=== PATIENT | female | born 1945 | race Asian ===

== ENCOUNTER 2016-12-11 12:48 | Emergency (ER) | payer MEDICARE ==
[~2016-12-11] VITALS: Ht 160 cm; Wt 45.4 kg
[2016-12-11] MEDS ORDERED: LISINOPRIL10 MG ORAL (12:58)
[2016-12-11 13:00] VITALS: BP 156/86
[2016-12-11] MEDS ORDERED: levETIRAcetam 500mg vial IV ONE (13:08)
[2016-12-11 13:09] LABS: HEMATOCRIT 38.3 % (37.0-47.0); HEMOGLOBIN 13.2 G/DL (12.0-16.0); MEAN CORPUSCULAR VOLUME 98 FL (80-99); PLATELET COUNT 280 K/UL (150-450); RED BLOOD COUNT 3.91 M/UL (4.20-5.40); WHITE BLOOD COUNT 12.6 K/UL (4.8-10.8)
[2016-12-11] MEDS ORDERED: levETIRAcetam 1,000mg/NS100ml 100 ML IVPB ONE (13:15)
[2016-12-11 13:17] LABS: INR 0.9 (0.9-1.1)
[2016-12-11] MEDS ORDERED: Etomidate 40mg/20ml Inj IV ONE (13:21)
[2016-12-11] MEDS ORDERED: Zemuron 50mg/5ml Inj IV ONE (13:21)
[2016-12-11 13:29] LABS: APPEARANCE,URINE CLEAR; BILIRUBIN, URINE NEGATIVE (NEGATIVE); COLOR,URINE PALE YELLOW; GLUCOSE, URINE (UA) 2+ (NEGATIVE); KETONES,URINE NEGATIVE (NEGATIVE); LEUKOCYTE ESTERASE ,URINE NEGATIVE (NEGATIVE); NITRITE,URINE NEGATIVE (NEGATIVE); PH,URINE 7 (4.5-8.0); PROTEIN,URINE 1+ (NEGATIVE); UROBILINOGEN,URINE NORMAL MG/DL (0.0-1.0)
[2016-12-11 13:30] VITALS: BP 178/93
--- NOTE | 2016-12-11 13:30 | Emergency Room Report ---
History of Present Illness General Chief Complaint: Altered Level of Consciousness Source: Family Member Present Illness HPI Patient is 71-year-old female presented after altered mental status. Patient had a report onset of headache approximately last night 11:30 PM. This was noted the sudden onset. Patient was given Percocet by mouth by family member. Subsequently patient was noted to have a decreased mental status in the morning. The patient prior history of hypertension only takes lisinopril for hypertension. She is not on anticoagulation. The patient was noted to be sleeping to the morning and continued to be unresponsive throughout the day. Allergies: Coded Allergies: No Known Allergies (Unverified , 12/11/16) Patient History Past Medical History: see triage record Reviewed Nursing Documentation: PMH: Agreed, PSxH: Agreed Nursing Documentation-PMH Past Medical History: No History, Except For Hx Hypertension: Yes Review of Systems All Other Systems: limited - by acuity Physical Exam Vital Signs Date Time Temp Pulse Resp B/P (MAP) Pulse Ox O2 Delivery O2 Flow Rate FiO2 12/11/16 12:51 98.2 78 20 161/91 94 Room Air General Appearance: moderate distress, thin Eyes: bilateral eye other - right eye deviation ENT: other - diminished gag reflex Neck: full range of motion Respiratory: lungs clear, normal breath sounds Cardiovascular #1: normal peripheral pulses, regular rate, rhythm, no edema Gastrointestinal: normal inspection, non tender, soft Musculoskeletal: normal inspection, back normal Neurologic: alert, oriented x3, responsive, 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 Total critical care time excluding procedures approximately 45 minutes. Intubation Intubation : Consent: Emergent Time of Intubation: 13:22 Intubation Method: orotracheal Tube Size (cm): 7.0 Medications: Etomidate, Rocuronium Breath Sounds after Intubation: equal Intubation Complications: no complications Post Intubation Xray: Yes Attempts: One Patient Tolerated: Well Complications: None Medical Decision Making Diagnostic Impression: Primary Impression: Altered level of consciousness Additional Impressions: Subarachnoid hemorrhage Hydrocephalus ER Course Patient presented for altered mental status. Differential diagnosis included but was not limited to ischemic stroke, subarachnoid hemorrhage, hypoglycemia, spinal cord injury, neurodegenerative disorder, urinary tract infection, hypoxemia. and she CT imaging ad by radiology showed subarachnoid hemorrhage in the paramesencephalic cisterns. patient was given IV etomidate and Rocuronium for intubation. Patient was given IV Keppra 1000 mg for seizure prophylaxis. The patient was discussed with Dr. Gilmore from [facility] for higher-level care transfer and he agreed to accept the patient. Patient will be started on a Nicardipine. Labs Test 12/11/16 13:00 12/11/16 13:20 White Blood Count 12.6 K/UL (4.8-10.8) Red Blood Count 3.91 M/UL (4.20-5.40) Hemoglobin 13.2 G/DL (12.0-16.0) Hematocrit 38.3 % (37.0-47.0) Mean Corpuscular Volume 98 FL (80-99) Mean Corpuscular Hemoglobin 33.8 PG (27.0-31.0) Mean Corpuscular Hemoglobin Concent 34.6 G/DL (32.0-36.0) Red Cell Distribution Width 11.0 % (11.6-14.8) Platelet Count 280 K/UL (150-450) Mean Platelet Volume 5.7 FL (6.5-10.1) Neutrophils (%) (Auto) % (45.0-75.0) Lymphocytes (%) (Auto) % (20.0-45.0) Monocytes (%) (Auto) % (1.0-10.0) Eosinophils (%) (Auto) % (0.0-3.0) Basophils (%) (Auto) % (0.0-2.0) Differential Total Cells Counted 100 Neutrophils % (Manual) 91 % (45-75) Lymphocytes % (Manual) 7 % (20-45) Monocytes % (Manual) 1 % (1-10) Eosinophils % (Manual) 0 % (0-3) Basophils % (Manual) 0 % (0-2) Band Neutrophils 1 % (0-8) Platelet Estimate Adequate Platelet Morphology Normal Red Blood Cell Morphology Normal Prothrombin Time 9.5 SEC (9.30-11.50) Prothromb Time International Ratio 0.9 (0.9-1.1) Activated Partial Thromboplast Time 25 SEC (23-33) Sodium Level 139 MMOL/L (136-145) Potassium Level 3.6 MMOL/L (3.5-5.1) Chloride Level 102 MMOL/L (98-107) Carbon Dioxide Level 21 MMOL/L (21-32) Anion Gap 16 mmol/L (5-15) Blood Urea Nitrogen 15 mg/dL (7-18) Creatinine 0.8 MG/DL (0.55-1.30) Estimat Glomerular Filtration Rate mL/min (>60) Glucose Level 160 MG/DL (74-106) Calcium Level 9.1 MG/DL (8.5-10.1) Total Bilirubin 0.9 MG/DL (0.2-1.0) Aspartate Amino Transf (AST/SGOT) 27 U/L (15-37) Alanine Aminotransferase (ALT/SGPT) 38 U/L (12-78) Alkaline Phosphatase 69 U/L (46-116) Total Protein 8.0 G/DL (6.4-8.2) Albumin 3.9 G/DL (3.4-5.0) Globulin 4.1 g/dL Albumin/Globulin Ratio 1.0 (1.0-2.7) Triglycerides Level 78 MG/DL (0-200) Cholesterol Level 258 MG/DL (< 200) LDL Cholesterol 173 mg/dL (<100) HDL Cholesterol 70 MG/DL (40-60) Cholesterol/HDL Ratio 3.7 (3.3-4.4) Thyroid Stimulating Hormone (TSH) 0.505 uiU/mL (0.360-3.740) Urine Color Pale yellow Urine Appearance Clear Urine pH 7 (4.5-8.0) Urine Specific [place] 1.010 (1.005-1.035) Urine Protein 1+ (NEGATIVE) Urine Glucose (UA) 2+ (NEGATIVE) Urine Ketones Negative (NEGATIVE) Urine Occult Blood 1+ (NEGATIVE) Urine Nitrite Negative (NEGATIVE) Urine Bilirubin Negative (NEGATIVE) Urine Urobilinogen Normal MG/DL (0.0-1.0) Urine Leukocyte Esterase Negative (NEGATIVE) EKG Diagnostic Results Rate: normal Rhythm: NSR ST Segments: no acute changes Last Vital Signs Date Time Temp Pulse Resp B/P (MAP) Pulse Ox O2 Delivery O2 Flow Rate FiO2 12/11/16 12:51 98.2 78 20 161/91 94 Room Air Status: unchanged Disposition: ER [facility] Condition: Critical Referrals: NOT CHOSEN IPA/,REFERRING (PCP) Geovanny Delcid Dec 11, 2016 13:30
[2016-12-11 13:32] LABS: ALANINE AMINOTRANSFERASE 38 U/L (12-78); ALBUMIN 3.9 G/DL (3.4-5.0); ALKALINE PHOSPHATASE 69 U/L (46-116); ANION GAP 16 mmol/L (5-15); ASPARTATE AMINO TRANSFERASE 27 U/L (15-37); BILIRUBIN,TOTAL 0.9 MG/DL (0.2-1.0); BLOOD UREA NITROGEN 15 mg/dL (7-18); CALCIUM 9.1 MG/DL (8.5-10.1); CARBON DIOXIDE 21 MMOL/L (21-32); CHLORIDE 102 MMOL/L (98-107); CREATININE 0.8 MG/DL (0.55-1.30); POTASSIUM 3.6 MMOL/L (3.5-5.1); SODIUM 139 MMOL/L (136-145)
[2016-12-11 13:39] LABS: CHOLESTEROL 258 MG/DL (< 200); HDL CHOLESTEROL 70 MG/DL (40-60); TRIGLYCERIDES 78 MG/DL (0-200)
[2016-12-11 13:45] VITALS: BP 159/76
[2016-12-11] MEDS ORDERED: niCARdipine HCl 200 ML IV SCH (13:45)
[2016-12-11 14:00] VITALS: BP 183/77
[2016-12-11 14:30] VITALS: BP 183/77
--- NOTE | 2016-12-12 11:12 | Diagnostic Imaging Report ---
Indication: Altered mental status Technique: Contiguous 5 mm thick transaxial imaging of the head obtained in a Siemens Sensation [address] scanner. Soft tissue and bone windows generated. Total Dose length Product (DLP): [address] Dose Index Volume (CTDIvol): 70.38, 0.15 mGy Comparison: none Findings: There is high density subarachnoid blood within the suprasellar cistern,. There is a mesencephalic cisterns, left sylvian fissure. There is hydrocephalus with dilatation of the third and lateral ventricle fourth ventricle. There is blood in the third and fourth ventricles as well. There is no midline shift. The cortical sulci appear mildly effaced bilaterally. Followup recommended. Impression: Acute subarachnoid hemorrhage with hydrocephalus as described above. Aneurysm rupture is suspected and should be evaluated further with conventional or CT angiogram. Critical value communication. Findings were discussed via telephone with Dr. Delcid by the statrad physician 12/11/16, 13:[address] scanner at [facility] is accredited by the [employer] and the scans are performed using dose optimization techniques as appropriate to a performed exam including Automatic Exposure control.
--- NOTE | 2016-12-12 14:54 | Diagnostic Imaging Report ---
Indication: Dyspnea Comparison: None A single view chest radiograph was obtained. Findings: Endotracheal tube is in good position several centimeters above the galileo. Aorta is mildly ectatic. Heart size is normal. Lungs are clear. Bones are osteopenic. Impression: Endotracheal tube in good position
--- NOTE | 2016-12-12 20:18 | Cardiology Report ---
APPROVED REPORT EKG Measurement Heart [id number] Normal sinus rhythm Possible Left atrial enlargement Prolonged QT Abnormal ECG
--- NOTE | 2016-12-12 20:18 | Cardiology Report ---
APPROVED REPORT EKG Measurement Heart [id number] Normal sinus rhythm Possible Left atrial enlargement Prolonged QT Abnormal ECG
--- NOTE | 2016-12-12 20:18 | Cardiology Report ---
APPROVED REPORT EKG Measurement Heart [id number] Normal sinus rhythm Possible Left atrial enlargement Prolonged QT Abnormal ECG
== END 2016-12-11 14:30 | disposition short-term general hospital (02) ==
LOC: EMR 13:20
DX: I60.9 Nontraumatic subarachnoid hemorrhage, unspecified (principal); G91.9 Hydrocephalus, unspecified; I10 Essential (primary) hypertension
CPT/HCPCS: 31500; 36415; 70450; 71010; 80053; 80061; 80307; 81003; 84443; 85007; 85025; 85610; 85730; 86900; 86901; 93005; 94002; 94664; 96365; 96366; 96375; 99291; J1953